=== PATIENT | male | born 1990 | race Caucasian/White ===

== ENCOUNTER 2017-05-16 10:27 | Emergency (ER) | payer SELFPAY ==
[~2017-05-16] VITALS: Ht 185.4 cm; Wt 97.8 kg
[~2017-05-16 10:27] MED LIST: ATIVAN1 MG PO; BENADRYL25 MG PO; BENADRYL50 MG PO; GABAPENTIN100 MG PO; INDERAL10 MG PO; LEVAQUIN750 MG PO; LEVOFLOXACIN750 MG PO; LIBRIUM25 MG PO; MIRTAZAPINE15 MG PO; NEURONTIN300 MG PO; NEURONTIN600 MG PO; SEROQUEL300 MG PO; SERTRALINE HCL50 MG PO; THIAMINE HCL100 MG PO; TRAZODONE HCL50 MG PO; VISTARIL50 MG PO; ZOFRAN4 MG PO; ZOLOFT100 MG PO
[2017-05-16 12:31] VITALS: BP 149/108
== END 2017-05-16 12:32 | disposition home or self-care (01) ==
LOC: EME 10:27
DX: Z76.0 Encounter for issue of repeat prescription (principal); F41.9 Anxiety disorder, unspecified; F32.9 Major depressive disorder, single episode, unspecified; R25.1 Tremor, unspecified; F17.200 Nicotine dependence, unspecified, uncomplicated; Z59.0 Homelessness
CPT/HCPCS: 99281; 99283

== ENCOUNTER 2017-05-22 16:40 | Emergency (ER) | payer OTHER ==
[~2017-05-22] VITALS: Ht 177.8 cm; Wt 75.0 kg
[2017-05-22 17:45] LABS: HEMOGLOBIN 13.9 G/DL (12.5-16.6); MCH 30.5 PG (29.0-34.0); MCHC 33.9 G/DL (30.0-36.0); MCV 89.9 FL (86-99); PLATELET COUNT 313 K/uL (156-360); RBC DIS.WIDTH-CV 12.4 % (11.8-14.6); RBC DIS.WIDTH-SD 40.8 % (39-53); RED BLOOD COUNT 4.56 M/uL (4.00-5.50); WHITE BLOOD COUNT 9.6 K/uL (4.1-10.2)
[2017-05-22 17:52] LABS: CHLORIDE 108 mEq/L (99-109); POTASSIUM 3.8 mEq/L (3.7-5.4); SODIUM 144 mEq/L (136-147)
[2017-05-22 17:54] LABS: GLUCOSE 118 mg/dL (70-99)
[2017-05-22 17:57] LABS: SERUM ETHYL ALCOHOL 256 mg/dL
[2017-05-22 17:58] LABS: CREATININE 1.1 mg/dL (0.6-1.3); GFR ESTIMATE (CALCULATED) > 59 mL/min/ (58.99-99999)
[2017-05-22 18:00] LABS: UREA NITROGEN (BUN) 21 mg/dL (9-23)
[2017-05-22 18:01] LABS: ACETAMINOPHEN (TYLENOL) < 10 mcg/mL (10-30); SALICYLATE < 5.0 MG/DL (15-30)
[2017-05-22 19:32] LABS: AMPHETAMINE NEGATIVE (500 ng/mL); COCAINE NEGATIVE (150 ng/mL); METHAMPHETAMINE NEGATIVE (500 ng/mL); OPIATES (MORPHINE) NEGATIVE (100 ng/mL); PHENCYCLIDINE NEGATIVE (25 ng/mL); THC CANNABINOIDS NEGATIVE (50 ng/mL)
[2017-05-22 19:33] LABS: BARBITURATES NEGATIVE (200 ng/mL); BENZODIAZEPINES NEGATIVE (150 ng/mL); BUPRENORPHINE NEGATIVE (10 ng/mL); METHADONE NEGATIVE (200 ng/mL); OXYCODONE NEGATIVE (100 ng/mL); PROPOXYPHENE NEGATIVE (300 ng/mL); TRICYCLIC ANTIDEPRESSANTS NEGATIVE (300 ng/mL)
[2017-05-23 05:37] VITALS: BP 124/81
== END 2017-05-23 05:41 | disposition home or self-care (01) ==
LOC: EME 16:40
PROVIDERS: Emergency Medicine
DX: F10.129 Alcohol abuse with intoxication, unspecified (principal); Y90.8 Blood alcohol level of 240 mg/100 ml or more; R45.851 Suicidal ideations; F34.1 Dysthymic disorder; R45.1 Restlessness and agitation; F60.3 Borderline personality disorder; F31.9 Bipolar disorder, unspecified; G47.30 Sleep apnea, unspecified; F17.200 Nicotine dependence, unspecified, uncomplicated
CPT/HCPCS: 80048; 85027; 90837; 99281; 99285; G0480; J1630; J2060; J2250

== ENCOUNTER 2017-05-23 13:13 | Emergency (ER) | payer OTHER ==
[~2017-05-23] VITALS: Ht 185.4 cm; Wt 79.3 kg
[2017-05-23 13:40] VITALS: BP 149/95
== END 2017-05-23 17:12 | disposition left against medical advice (07) ==
LOC: EME 13:13
DX: F10.239 Alcohol dependence with withdrawal, unspecified (principal); Z53.21 Procedure and treatment not carried out due to patient leaving prior to being seen by health care provider

== ENCOUNTER 2017-06-07 13:14 | Emergency (ER) | payer OTHER ==
[~2017-06-07] VITALS: Ht 193 cm; Wt 79.3 kg
[2017-06-07 13:16] VITALS: BP 168/105
== END 2017-06-07 16:19 | disposition left against medical advice (07) ==
LOC: EME 13:14
DX: F32.9 Major depressive disorder, single episode, unspecified (principal); Z53.21 Procedure and treatment not carried out due to patient leaving prior to being seen by health care provider

== ENCOUNTER 2017-06-10 12:52 | Inpatient (IN) | payer OTHER ==
[~2017-06-10] VITALS: Ht 185.4 cm; Wt 81.6 kg
[2017-06-10 14:42] LABS: HEMATOCRIT 40.1 % (38.0-50.0); HEMOGLOBIN 13.6 G/DL (12.5-16.6); MCH 30.4 PG (29.0-34.0); MCHC 33.9 G/DL (30.0-36.0); MCV 89.7 FL (86-99); PLATELET COUNT 317 K/uL (156-360); RBC DIS.WIDTH-CV 12.1 % (11.8-14.6); RBC DIS.WIDTH-SD 40.1 % (39-53); RED BLOOD COUNT 4.47 M/uL (4.00-5.50); WHITE BLOOD COUNT 11.7 K/uL (4.1-10.2)
[2017-06-10 14:50] LABS: CHLORIDE 108 mEq/L (99-109); POTASSIUM 3.9 mEq/L (3.7-5.4); SODIUM 144 mEq/L (136-147)
[2017-06-10 14:52] LABS: GLUCOSE 96 mg/dL (70-99)
[2017-06-10 14:55] LABS: SERUM ETHYL ALCOHOL < 10 mg/dL
[2017-06-10 14:56] LABS: CREATININE 0.8 mg/dL (0.6-1.3); GFR ESTIMATE (CALCULATED) > 59 mL/min/ (58.99-99999)
[2017-06-10 14:57] LABS: UREA NITROGEN (BUN) 11 mg/dL (9-23)
[2017-06-10 17:22] LABS: APPEARANCE CLEAR ((CLEAR)); BILIRUBIN SMALL; BLOOD NEGATIVE; COLOR YELLOW ((YELLOW)); GLUCOSE (STRIP) NEGATIVE; KETONES NEGATIVE; LEUKOCYTES NEGATIVE; NITRITE NEGATIVE; PROTEIN (STRIP) NEGATIVE; SPECIFIC GRAVITY 1.027 (1.000-1.030); UCUL ADDED? NO; UROBILINOGEN 0.2 MG/DL (0.2-1.0)
[2017-06-10 17:29] LABS: AMPHETAMINE NEGATIVE (500 ng/mL); BARBITURATES NEGATIVE (200 ng/mL); BENZODIAZEPINES PRESUMPTIVE POSITIVE (150 ng/mL); BUPRENORPHINE NEGATIVE (10 ng/mL); COCAINE NEGATIVE (150 ng/mL); METHADONE NEGATIVE (200 ng/mL); METHAMPHETAMINE NEGATIVE (500 ng/mL); OPIATES (MORPHINE) PRESUMPTIVE POSITIVE (100 ng/mL); OXYCODONE NEGATIVE (100 ng/mL); PHENCYCLIDINE NEGATIVE (25 ng/mL); PROPOXYPHENE NEGATIVE (300 ng/mL); THC CANNABINOIDS NEGATIVE (50 ng/mL); TRICYCLIC ANTIDEPRESSANTS NEGATIVE (300 ng/mL)
[2017-06-10 18:21] LABS: BENZODIAZEPINES, URINE SCREEN Negative (200 ng/mL)
[2017-06-10 20:48] VITALS: BP 140/96
[2017-06-11] MEDS ORDERED: ABILIFY20 MG PO (02:02)
[2017-06-11] MEDS ORDERED: NEURONTIN600 MG PO (02:08)
[2017-06-11] MEDS ORDERED: WELLBUTRIN XL300 MG PO (02:10)
[2017-06-11] MEDS ORDERED: CYMBALTA20 MG PO (02:13)
[2017-06-11 07:59] VITALS: BP 137/88
[2017-06-11 16:05] VITALS: BP 130/79
[2017-06-12 07:17] VITALS: BP 115/67
[2017-06-12 15:10] VITALS: BP 118/72
[2017-06-13 07:55] VITALS: BP 112/55
[2017-06-13] MEDS ORDERED: ARIPIPRAZOLE10 MG PO (09:27)
[2017-06-13] MEDS ORDERED: BUPROPION XL150 MG PO (09:27)
== END 2017-06-13 10:55 | disposition home or self-care (01) | DRG 885 ==
LOC: EME 12:52 → 1WEST 18:35 → EDOF 18:35 → ENRESERV 19:48 → 1WEST 20:27
PROVIDERS: Emergency Medicine
PROC: 0HQEXZZ Repair Left Lower Arm Skin, External Approach (ICD-10-PCS; principal; 2017-06-10)
DX: F33.2 Major depressive disorder, recurrent severe without psychotic features (principal); S51.812A Laceration without foreign body of left forearm, initial encounter; X78.9XXA Intentional self-harm by unspecified sharp object, initial encounter; Z59.0 Homelessness; F60.3 Borderline personality disorder; G47.30 Sleep apnea, unspecified; F17.200 Nicotine dependence, unspecified, uncomplicated
CPT/HCPCS: 80048; 81003; 84999; 85027; 90837; 97165 GO; 99281; 99285; G0480; J1200; J1630; J2060; J7030

== ENCOUNTER 2017-06-18 20:17 | Inpatient (IN) | payer OTHER ==
[~2017-06-18] VITALS: Ht 185.4 cm; Wt 80.6 kg
[~2017-06-18 20:17] MED LIST changes: +ABILIFY20 MG PO; +ARIPIPRAZOLE10 MG PO; +BUPROPION XL150 MG PO; +CYMBALTA20 MG PO; +WELLBUTRIN XL300 MG PO
[2017-06-18 21:26] LABS: BENZODIAZEPINES, URINE SCREEN Negative (200 ng/mL)
[2017-06-18 22:53] LABS: HEMATOCRIT 40.2 % (38.0-50.0); HEMOGLOBIN 13.5 G/DL (12.5-16.6); MCH 29.9 PG (29.0-34.0); MCHC 33.6 G/DL (30.0-36.0); MCV 89.1 FL (86-99); RBC DIS.WIDTH-CV 12.1 % (11.8-14.6); RBC DIS.WIDTH-SD 39.5 % (39-53); RED BLOOD COUNT 4.51 M/uL (4.00-5.50)
[2017-06-18 23:03] LABS: CHLORIDE 103 mEq/L (99-109); SODIUM 140 mEq/L (136-147)
[2017-06-18 23:05] LABS: GLUCOSE 99 mg/dL (70-99)
[2017-06-18 23:08] LABS: SERUM ETHYL ALCOHOL 153 mg/dL
[2017-06-18 23:09] LABS: CREATININE 0.8 mg/dL (0.6-1.3); GFR ESTIMATE (CALCULATED) > 59 mL/min/ (58.99-99999)
[2017-06-18 23:10] LABS: UREA NITROGEN (BUN) 7 mg/dL (9-23)
[2017-06-18 23:12] LABS: ACETAMINOPHEN (TYLENOL) < 10 mcg/mL (10-30); SALICYLATE < 5.0 MG/DL (15-30)
[2017-06-18 23:32] LABS: PLAT.SUFFICIENCY ADEQUATE; PLATELET COUNT 322 K/uL (156-360)
[2017-06-19 03:49] VITALS: BP 120/72
[2017-06-19 07:44] VITALS: BP 119/69
[2017-06-19] MEDS ORDERED: ABILIFY10 MG PO (10:13)
[2017-06-19] MEDS ORDERED: WELLBUTRIN XL150 MG PO (10:14)
[2017-06-19] MEDS ORDERED: NEURONTIN300 MG PO (10:14)
[2017-06-19 16:42] VITALS: BP 98/55
[2017-06-20 07:46] VITALS: BP 113/58
[2017-06-20] MEDS ORDERED: NEURONTIN800 MG PO (09:23)
[2017-06-20] MEDS ORDERED: WELLBUTRIN XL150 MG PO (09:24)
[2017-06-20] MEDS ORDERED: ABILIFY10 MG PO (09:24)
== END 2017-06-20 11:18 | disposition home or self-care (01) | DRG 885 ==
LOC: EME 20:17 → ENRESERV 06-19 03:07 → EDOF 06-19 03:18 → 1WEST 06-19 03:47
PROVIDERS: Emergency Medicine
DX: F33.1 Major depressive disorder, recurrent, moderate (principal); R45.851 Suicidal ideations; F17.200 Nicotine dependence, unspecified, uncomplicated; Y90.6 Blood alcohol level of 120-199 mg/100 ml; F60.3 Borderline personality disorder; F10.10 Alcohol abuse, uncomplicated; Z91.14 Patient's other noncompliance with medication regimen; Z91.5 Personal history of self-harm; Z78.1 Physical restraint status
CPT/HCPCS: 80048; 80306 90; 85027; 90837; 99281; 99285; G0480; J1630; J2060

== ENCOUNTER 2017-07-08 11:23 | Emergency (ER) | payer OTHER ==
[~2017-07-08] VITALS: Ht 185.4 cm; Wt 78.4 kg
[~2017-07-08 11:23] MED LIST changes: +ABILIFY10 MG PO; +NEURONTIN800 MG PO; +WELLBUTRIN XL150 MG PO
[2017-07-08] MEDS ORDERED: ATARAX10 MG PO (14:36)
[2017-07-08] MEDS ORDERED: KEFLEX500 MG PO (14:36)
[2017-07-08 15:39] VITALS: BP 150/90
== END 2017-07-08 15:39 | disposition home or self-care (01) ==
LOC: EME 11:23
PROC: 3E0T3BZ Introduction of Anesthetic Agent into Peripheral Nerves and Plexi, Percutaneous Approach (ICD-10-PCS; principal; 2017-07-08)
DX: K08.89 Other specified disorders of teeth and supporting structures (principal); S61.011A Laceration without foreign body of right thumb without damage to nail, initial encounter; W27.0XXA Contact with workbench tool, initial encounter; F41.9 Anxiety disorder, unspecified; F17.200 Nicotine dependence, unspecified, uncomplicated
CPT/HCPCS: 73140; 99281; 99283

== ENCOUNTER 2017-07-09 20:45 | Emergency (ER) | payer OTHER ==
[~2017-07-09] VITALS: Ht 185.4 cm; Wt 74.8 kg
[~2017-07-09 20:45] MED LIST changes: +ATARAX10 MG PO; +KEFLEX500 MG PO
[2017-07-09 21:44] LABS: HEMATOCRIT 43.4 % (38.0-50.0); HEMOGLOBIN 14.6 G/DL (12.5-16.6); MCH 29.6 PG (29.0-34.0); MCHC 33.6 G/DL (30.0-36.0); RBC DIS.WIDTH-CV 12.7 % (11.8-14.6); RBC DIS.WIDTH-SD 41.3 % (39-53); RED BLOOD COUNT 4.93 M/uL (4.00-5.50); WHITE BLOOD COUNT 9.9 K/uL (4.1-10.2)
[2017-07-09 21:50] LABS: PLATELET COUNT 324 K/uL (156-360)
[2017-07-09 21:59] LABS: CHLORIDE 106 mEq/L (99-109); POTASSIUM 4.1 mEq/L (3.7-5.4); SODIUM 145 mEq/L (136-147)
[2017-07-09 22:01] LABS: GLUCOSE 95 mg/dL (70-99)
[2017-07-09 22:04] LABS: SERUM ETHYL ALCOHOL 76 mg/dL
[2017-07-09 22:05] LABS: CREATININE 0.8 mg/dL (0.6-1.3); GFR ESTIMATE (CALCULATED) > 59 mL/min/ (58.99-99999)
[2017-07-09 22:07] LABS: UREA NITROGEN (BUN) 10 mg/dL (9-23)
[2017-07-09 22:08] LABS: ACETAMINOPHEN (TYLENOL) < 10 mcg/mL (10-30); SALICYLATE < 5.0 MG/DL (15-30)
[2017-07-09 22:24] LABS: AMPHETAMINE NEGATIVE (500 ng/mL); BARBITURATES NEGATIVE (200 ng/mL); BENZODIAZEPINES NEGATIVE (150 ng/mL); BUPRENORPHINE NEGATIVE (10 ng/mL); COCAINE NEGATIVE (150 ng/mL); METHADONE NEGATIVE (200 ng/mL); METHAMPHETAMINE NEGATIVE (500 ng/mL); OPIATES (MORPHINE) NEGATIVE (100 ng/mL); OXYCODONE NEGATIVE (100 ng/mL); PHENCYCLIDINE NEGATIVE (25 ng/mL); PROPOXYPHENE NEGATIVE (300 ng/mL); THC CANNABINOIDS NEGATIVE (50 ng/mL); TRICYCLIC ANTIDEPRESSANTS NEGATIVE (300 ng/mL)
[2017-07-11 07:10] VITALS: BP 123/89
== END 2017-07-11 07:17 ==
LOC: EME 20:45
PROVIDERS: Emergency Medicine
PROC: 0HQEXZZ Repair Left Lower Arm Skin, External Approach (ICD-10-PCS; principal; 2017-07-09)
DX: R45.851 Suicidal ideations (principal); S61.512A Laceration without foreign body of left wrist, initial encounter; W26.0XXA Contact with knife, initial encounter; F32.9 Major depressive disorder, single episode, unspecified; F60.9 Personality disorder, unspecified; F10.20 Alcohol dependence, uncomplicated; Z04.6 Encounter for general psychiatric examination, requested by authority; Z91.5 Personal history of self-harm; R56.9 Unspecified convulsions; F41.9 Anxiety disorder, unspecified; F31.9 Bipolar disorder, unspecified; F25.9 Schizoaffective disorder, unspecified; F17.200 Nicotine dependence, unspecified, uncomplicated; Z88.8 Allergy status to other drugs, medicaments and biological substances
CPT/HCPCS: 80048; 85027; 90837; 99281; 99285; G0480; J1630; J2060

== ENCOUNTER 2017-08-10 18:41 | Emergency (ER) | payer OTHER ==
[~2017-08-10] VITALS: Ht 185.4 cm; Wt 74.8 kg
[2017-08-10 19:49] LABS: BASOPHIL (%) 0.4 % (0-1); BASOPHIL COUNT 0.1 K/uL (0-0.1); EOSINOPHIL (%) 0.2 % (0-5); HEMATOCRIT 45.7 % (38.0-50.0); HEMOGLOBIN 15.9 G/DL (12.5-16.6); IMMATURE GRANULOCYTE (%) 0.2 % (0.0-0.7); LYMPHOCYTE (%) 22.1 % (15-42); LYMPHOCYTE COUNT 2.8 K/uL (1.0-2.8); MCH 29.6 PG (29.0-34.0); MCHC 34.8 G/DL (30.0-36.0); MCV 84.9 FL (86-99); MONOCYTE (%) 6.6 % (3-12); MONOCYTE COUNT 0.8 K/uL (0-0.8); NEUTROPHIL (%) 70.5 % (45-76); NEUTROPHIL COUNT 8.9 K/uL (1.8-6.4); PLATELET COUNT 358 K/uL (156-360); RBC DIS.WIDTH-CV 13.5 % (11.8-14.6); RBC DIS.WIDTH-SD 41.8 % (39-53); RED BLOOD COUNT 5.38 M/uL (4.00-5.50); WHITE BLOOD COUNT 12.7 K/uL (4.1-10.2)
[2017-08-10 20:02] LABS: ALBUMIN 4.4 g/dL (3.2-4.8)
[2017-08-10 20:03] LABS: CHLORIDE 103 mEq/L (99-109); SODIUM 144 mEq/L (136-147)
[2017-08-10 20:05] LABS: GLUCOSE 83 mg/dL (70-99); TOTAL PROTEIN 7.9 g/dL (6.4-8.3)
[2017-08-10 20:07] LABS: TOTAL BILIRUBIN 0.3 mg/dL (0.0-1.0)
[2017-08-10 20:08] LABS: SERUM ETHYL ALCOHOL 374 mg/dL
[2017-08-10 20:09] LABS: ALKALINE PHOSPHATASE 124 IU/L (3-129); CREATININE 0.8 mg/dL (0.6-1.3); GFR ESTIMATE (CALCULATED) > 59 mL/min/ (58.99-99999)
[2017-08-10 20:10] LABS: AST (GOT) 19 IU/L (2-34)
[2017-08-10 20:11] LABS: UREA NITROGEN (BUN) 14 mg/dL (9-23)
[2017-08-10 20:12] LABS: ALT (GPT) 25 IU/L (3-49); SALICYLATE < 5.0 MG/DL (15-30)
[2017-08-10 20:13] LABS: ACETAMINOPHEN (TYLENOL) < 10 mcg/mL (10-30)
[2017-08-11 00:58] LABS: APPEARANCE SL.HAZY ((CLEAR)); BILIRUBIN NEGATIVE; BLOOD NEGATIVE; COLOR YELLOW ((YELLOW)); GLUCOSE (STRIP) NEGATIVE; KETONES 20; LEUKOCYTES NEGATIVE; NITRITE NEGATIVE; PROTEIN (STRIP) 100; SPECIFIC GRAVITY 1.024 (1.000-1.030); UROBILINOGEN 0.2 MG/DL (0.2-1.0)
[2017-08-11 01:07] LABS: AMPHETAMINE NEGATIVE (500 ng/mL); BARBITURATES NEGATIVE (200 ng/mL); BENZODIAZEPINES NEGATIVE (150 ng/mL); BUPRENORPHINE NEGATIVE (10 ng/mL); COCAINE NEGATIVE (150 ng/mL); METHADONE NEGATIVE (200 ng/mL); METHAMPHETAMINE NEGATIVE (500 ng/mL); OPIATES (MORPHINE) NEGATIVE (100 ng/mL); OXYCODONE NEGATIVE (100 ng/mL); PHENCYCLIDINE NEGATIVE (25 ng/mL); PROPOXYPHENE NEGATIVE (300 ng/mL); THC CANNABINOIDS NEGATIVE (50 ng/mL); TRICYCLIC ANTIDEPRESSANTS NEGATIVE (300 ng/mL)
[2017-08-11 01:47] LABS: BACTERIA 1+ /HPF; EPITHELIAL CELLS 1+ /HPF; HYALINE CASTS 0-5 /LPF; MUCUS 3+ /LPF; RED BLOOD CELLS 0-5 /HPF (0-5); UCUL ADDED? NO; WHITE BLOOD CELLS 0-5 /HPF (0-5)
[2017-08-11] MEDS ORDERED: B-1100 MG PO (09:43)
[2017-08-11] MEDS ORDERED: LIBRIUM25 MG PO (09:43)
[2017-08-11 09:51] VITALS: BP 140/92
== END 2017-08-11 09:58 | disposition home or self-care (01) ==
LOC: EME 18:41
PROVIDERS: Emergency Medicine
DX: F10.229 Alcohol dependence with intoxication, unspecified (principal); Y90.8 Blood alcohol level of 240 mg/100 ml or more; T49.6X1A Poisoning by otorhinolaryngological drugs and preparations, accidental (unintentional), initial encounter; F32.9 Major depressive disorder, single episode, unspecified; R56.9 Unspecified convulsions; F41.9 Anxiety disorder, unspecified; F31.9 Bipolar disorder, unspecified; F25.9 Schizoaffective disorder, unspecified; F17.200 Nicotine dependence, unspecified, uncomplicated; Z88.8 Allergy status to other drugs, medicaments and biological substances
CPT/HCPCS: 80053; 81003; 85025; 90839; 99281; 99285; G0480

== ENCOUNTER 2017-08-12 15:50 | Inpatient (IN) | payer OTHER ==
[~2017-08-12] VITALS: Ht 177.8 cm; Wt 68.4 kg
[~2017-08-12 15:50] MED LIST changes: +B-1100 MG PO
[2017-08-12 16:03] LABS: HEMOGLOBIN 14.9 G/DL (12.5-16.6); MCH 29.5 PG (29.0-34.0); MCHC 34.7 G/DL (30.0-36.0); MCV 85.1 FL (86-99); PLATELET COUNT 328 K/uL (156-360); RBC DIS.WIDTH-CV 13.8 % (11.8-14.6); RBC DIS.WIDTH-SD 42.9 % (39-53); RED BLOOD COUNT 5.05 M/uL (4.00-5.50); WHITE BLOOD COUNT 6.1 K/uL (4.1-10.2)
[2017-08-12 16:37] LABS: CHLORIDE 104 MEQ/L (99-109); CREATININE 0.7 MG/DL (0.6-1.3); GFR ESTIMATE (CALCULATED) > 59 mL/min/ (58.99-99999); POTASSIUM 3.7 MEQ/L (3.7-5.4); SALICYLATE < 3.0 MG/DL (15-30); SERUM ETHYL ALCOHOL 446 mg/dL; SODIUM 143 MEQ/L (136-147); UREA NITROGEN (BUN) 9 mg/dL (9-23)
[2017-08-12 16:42] LABS: GLUCOSE 110 mg/dL (70-99)
[2017-08-12 16:46] LABS: ACETAMINOPHEN (TYLENOL) < 10 MCG/ML (10-30)
[2017-08-12 18:06] LABS: APPEARANCE CLEAR ((CLEAR)); BILIRUBIN NEGATIVE; BLOOD SMALL; COLOR YELLOW ((YELLOW)); GLUCOSE (STRIP) NEGATIVE; KETONES NEGATIVE; LEUKOCYTES NEGATIVE; NITRITE NEGATIVE; PROTEIN (STRIP) 30; SPECIFIC GRAVITY 1.012 (1.000-1.030); UROBILINOGEN 0.2 MG/DL (0.2-1.0)
[2017-08-12 18:10] LABS: BACTERIA NONE SEEN /HPF; EPITHELIAL CELLS RARE /HPF; MUCUS 1+ /LPF; UCUL ADDED? NO; WHITE BLOOD CELLS 0-5 /HPF (0-5)
[2017-08-12 18:14] LABS: AMPHETAMINE NEGATIVE (500 ng/mL); BARBITURATES NEGATIVE (200 ng/mL); BENZODIAZEPINES NEGATIVE (150 ng/mL); BUPRENORPHINE NEGATIVE (10 ng/mL); COCAINE NEGATIVE (150 ng/mL); METHADONE NEGATIVE (200 ng/mL); METHAMPHETAMINE NEGATIVE (500 ng/mL); OPIATES (MORPHINE) NEGATIVE (100 ng/mL); OXYCODONE NEGATIVE (100 ng/mL); PHENCYCLIDINE NEGATIVE (25 ng/mL); PROPOXYPHENE NEGATIVE (300 ng/mL); THC CANNABINOIDS NEGATIVE (50 ng/mL); TRICYCLIC ANTIDEPRESSANTS NEGATIVE (300 ng/mL)
[2017-08-13 11:24] VITALS: BP 140/98
[2017-08-13 16:13] VITALS: BP 146/87
[2017-08-14 07:39] VITALS: BP 136/78
[2017-08-14 16:09] VITALS: BP 143/92
[2017-08-15 08:03] VITALS: BP 117/72
[2017-08-15] MEDS ORDERED: FLUOXETINE HCL20 MG PO (09:50)
[2017-08-15] MEDS ORDERED: NEURONTIN600 MG PO (09:50)
== END 2017-08-15 10:44 | disposition home or self-care (01) | DRG 881 ==
LOC: EME 15:50 → 1WEST 08-13 10:00 → EDOF 08-13 10:00 → 1WEST 08-13 11:12 → ENRESERV 08-13 11:12 → 1WEST 08-15 10:44
PROVIDERS: Emergency Medicine
DX: F34.1 Dysthymic disorder (principal); F31.9 Bipolar disorder, unspecified; F60.3 Borderline personality disorder; F10.229 Alcohol dependence with intoxication, unspecified; F10.239 Alcohol dependence with withdrawal, unspecified; Y90.8 Blood alcohol level of 240 mg/100 ml or more; T49.6X2A Poisoning by otorhinolaryngological drugs and preparations, intentional self-harm, initial encounter; F25.9 Schizoaffective disorder, unspecified; F17.200 Nicotine dependence, unspecified, uncomplicated; Z91.14 Patient's other noncompliance with medication regimen; Z91.19 Patient's noncompliance with other medical treatment and regimen; Z81.1 Family history of alcohol abuse and dependence
CPT/HCPCS: 80048; 81003; 85027; 90837; 99281; 99285; G0480